=== PATIENT | male | born 1970 | race Two or more races ===

== ENCOUNTER 2023-07-24 18:33 | Inpatient (IN) | payer SELFPAY ==
[~2023-07-24] VITALS: Ht 175.3 cm; Wt 93.0 kg
[2023-07-24 18:35] VITALS: PULSE 85; RESP 10; O2SAT 86
[2023-07-24] MEDS ORDERED: NALOXONE HCL 1MG/ML 2ML SYRINGE ONE ×2 (18:41→21:52)
[2023-07-24] MEDS ORDERED: SODIUM CHLORIDE 0.9% 1,000 ML IVB ONE (18:45)
[2023-07-24] MEDS ORDERED: NALOXONE HCL 1MG/ML 2ML SYRINGE IV ONE ×4 (18:45→22:00)
[2023-07-24 18:55] LABS: Base Excess -1.1 mmol/L (-2.0-2.0)
[2023-07-24 19:30] VITALS: PULSE 87; RESP 12; O2SAT 94
[2023-07-24 19:34] LABS: Hematocrit 43.2 % (41.0-53.0); Mean Corpuscular Hemoglobin 31.2 pg (28.0-32.0); Mean Corpuscular Hgb Conc. 34.7 g/dL (32.0-36.0); Mean Corpuscular Volume 89.8 fL (80.0-100.0); Red Blood Cells 4.81 10^6/uL (4.5-5.90); Red Cell Distribution Width 12.8 % (11.8-14.3); White Blood Cell 14.2 10^3/uL (4.4-10.8)
[2023-07-24 19:37] LABS: Urine Bacteria NONE SEEN /hpf (None Seen); Urine Blood Negative /uL (Negative); Urine Clarity Clear (Clear); Urine Protein, UAD 1+ (Negative); Urine Specific Gravity 1.021 (1.001-1.035); Urine Urobilinogen Normal (Negative); Urine WBC 2 /hpf (0 - 3); Urine pH 5.5 (5.0-8.0)
[2023-07-24 19:40] LABS: Urine Color STRAW (Yellow)
[2023-07-24 19:42] LABS: Basophils % (manual) 0 (0.0-2.0); Blast Cells 0; Promyelocytes % 0; Reactive Lymphocytes 0
[2023-07-24 19:54] LABS: Alanine Aminotransferase 67 U/L (7-40); Albumin 4.7 g/dL (3.2-4.8); Alkaline Phosphatase 83 U/L (46-116); Anion Gap 13 (5-15); Aspartate Aminotransferase 66 U/L (13-40); BUN/Creatinine Ratio 6.4 (10.0-20.0); Bilirubin, Total 0.4 mg/dL (0.2-1.0); Blood Alcohol 3.2 mg/dL (<10); Blood Urea Nitrogen 7 mg/dL (9-23); Calcium 9.6 mg/dL (8.5-10.1); Carbon Dioxide 22 mmol/L (20-30); Chloride 103 mmol/L (98-107); Glucose 293 mg/dL (74-106); Potassium 3.5 mmol/L (3.5-5.1); Sodium 138 mmol/L (136-145); Total Protein 7.3 g/dL (5.7-8.2)
[2023-07-24 20:00] LABS: Band Neutrophils % (manual) 6; Eosinophils % (manual) 2 (0-7); Lymphocytes % (manual) 35 (10.0-50.0); Metamyelocytes % 6; Monocytes % (manual) 13 (0-12); Myelocytes % 4; Platelet Estimate Adequate
[2023-07-24 20:22] LABS: Amphetamine Screen, Urine Neg (NEGATIVE); Barbiturate Scree,Urine Neg (NEGATIVE); Benzodiazephine Screen, Urine Neg (NEGATIVE); Cannabinoid Screen, Urine Neg (NEGATIVE); Cocaine Screen, Urine Neg (NEGATIVE); Opiate Scree,Urine Neg (NEGATIVE); Phencyclidine Screen, Urine Neg (NEGATIVE)
[2023-07-24] MEDS ORDERED: FUROSEMIDE 40 MG/4 ML VIAL IV ONE (20:45)
[2023-07-24] MEDS ORDERED: ONDANSETRON HCL 4 MG/2 ML VIAL IV PRN (21:00)
[2023-07-24] MEDS ORDERED: NITROGLYCERIN 0.4 MG SL TAB SL PRN (21:00)
[2023-07-24] MEDS ORDERED: IOHEXOL 350 MG/ML 100ML IJ ONE (22:29)
[2023-07-24 22:58] LABS: COVID19 ANTIGEN SOFIA FIA NEGATIVE (NEGATIVE)
[2023-07-25] VITALS (92 sets, daily range): BP systolic 84–131; BP diastolic 45–92; PULSE 67–111; RESP 10–21; TEMP 97.6–100.9; O2SAT 93–100
[2023-07-25] MEDS ORDERED: NALOXONE HCL 2 MG in DEXTROSE 495 ML IV ONE (01:15)
[2023-07-25] MEDS ORDERED: SUCCINYLCHOLINE CHLORIDE 20 MG/ML 10ML VIAL IV ONE ×2 (02:11→02:45)
[2023-07-25] MEDS ORDERED: ETOMIDATE (2MG/ML) 20ML VIAL IV ONE ×2 (02:11→02:45)
[2023-07-25] MEDS ORDERED: MIDAZOLAM DRIP 50 mg/50mL 50 ML IV ONE (02:12)
[2023-07-25] MEDS ORDERED: MIDAZOLAM DRIP 50 mg/50mL 50 ML IV SCH (02:15)
[2023-07-25] MEDS: MIDAZOLAM DRIP 50 mg/50mL 50 ML IV SCH ×3 (02:45→23:57)
[2023-07-25 03:35] LABS: Base Excess 0.1 mmol/L (-2.0-2.0)
[2023-07-25 06:22] LABS: Anion Gap 10 (5-15); Carbon Dioxide 24 mmol/L (20-30); Chloride 102 mmol/L (98-107); Sodium 136 mmol/L (136-145)
[2023-07-25 06:23] LABS: Calcium 9.2 mg/dL (8.5-10.1)
[2023-07-25 06:28] LABS: Glucose 212 mg/dL (74-106)
[2023-07-25 06:29] LABS: BUN/Creatinine Ratio 5.5 (10.0-20.0); Blood Urea Nitrogen 8 mg/dL (9-23)
[2023-07-25 06:33] LABS: Basophils # (auto) 0 10 ^3/uL (0-0.2); Basophils % (auto) 0.2 % (0.0-2.0); Eosinophils # (auto) 0 10 ^3/uL (0-0.8); Hematocrit 42.3 % (41.0-53.0); Hemoglobin 14.5 g/dL (13.5-17.5); Lymphocytes # (auto) 1.5 10 ^3/uL (0.4-5.4); Lymphocytes % (auto) 7.2 % (10.0-50.0); Mean Corpuscular Hemoglobin 31.1 pg (28.0-32.0); Mean Corpuscular Hgb Conc. 34.4 g/dL (32.0-36.0); Mean Corpuscular Volume 90.3 fL (80.0-100.0); Monocytes % (auto) 4.8 % (0.0-12.0); Neutrophils # (auto) 18.1 10 ^3/uL (1.6-8.6); Neutrophils % (auto) 87.8 % (37.0-80.0); Nucleated Red Blood Cells % 0.1 %; Red Blood Cells 4.68 10^6/uL (4.5-5.90); White Blood Cell 20.7 10^3/uL (4.4-10.8)
[2023-07-25 06:38] LABS: Potassium 5.9 mmol/L (3.5-5.1)
[2023-07-25 07:08] LABS: Base Excess 0.5 mmol/L (-2.0-2.0)
[2023-07-25] MEDS: PHENYLEPHRINE IV 250 ML IV SCH ×3 (08:00→21:55)
[2023-07-25] MEDS: SODIUM CHLORIDE 0.9% 1,000 ML IV SCH (13:03)
[2023-07-25 14:45] LABS: Basophils # (auto) 0 10 ^3/uL (0-0.2); Basophils % (auto) 0.1 % (0.0-2.0); Eosinophils # (auto) 0.2 10 ^3/uL (0-0.8); Eosinophils % (auto) 1.5 % (0.0-7.0); Hematocrit 42.4 % (41.0-53.0); Hemoglobin 14.1 g/dL (13.5-17.5); Lymphocytes # (auto) 2.7 10 ^3/uL (0.4-5.4); Lymphocytes % (auto) 17.5 % (10.0-50.0); Mean Corpuscular Hemoglobin 30.7 pg (28.0-32.0); Mean Corpuscular Hgb Conc. 33.4 g/dL (32.0-36.0); Monocytes # (auto) 1.2 10 ^3/uL (0-1.3); Monocytes % (auto) 7.5 % (0.0-12.0); Neutrophils # (auto) 11.2 10 ^3/uL (1.6-8.6); Neutrophils % (auto) 73.4 % (37.0-80.0); Red Cell Distribution Width 13.2 % (11.8-14.3); White Blood Cell 15.3 10^3/uL (4.4-10.8)
[2023-07-25] MEDS ORDERED: MEROPENEM 500MG IVPB 50 ML IV ONE (14:45)
[2023-07-25] MEDS ORDERED: IOHEXOL 350 MG/ML 100ML IJ ONE (14:48)
[2023-07-25 14:53] LABS: Chloride 104 mmol/L (98-107); Potassium 4.3 mmol/L (3.5-5.1); Sodium 139 mmol/L (136-145)
[2023-07-25 14:54] LABS: Anion Gap 7 (5-15); Carbon Dioxide 28 mmol/L (20-30)
[2023-07-25 14:55] LABS: Calcium 9.2 mg/dL (8.5-10.1)
[2023-07-25 14:59] LABS: BUN/Creatinine Ratio 8.4 (10.0-20.0); Blood Urea Nitrogen 12 mg/dL (9-23); Glucose 164 mg/dL (74-106)
[2023-07-25] MEDS ORDERED: ENOXAPARIN SOD 40 MG/0.4 ML SYRINGE SC ONE (15:15)
[2023-07-25 16:16] LABS: Urine Bacteria NONE SEEN /hpf (None Seen); Urine Blood 3+ /uL (Negative); Urine Budding Yeast MANY /hpf (None Seen); Urine Clarity CLOUDY (Clear); Urine Color Yellow (Yellow); Urine Mucus FEW (None Seen); Urine Protein, UAD 1+ (Negative); Urine Specific Gravity 1.029 (1.001-1.035); Urine Urobilinogen Normal (Negative); Urine WBC 82 /hpf (0 - 3); Urine WBC Clumps PRESENT /hpf (None Seen); Urine pH 5.5 (5.0-8.0)
[2023-07-25] MEDS: ACETAMINOPHEN 650 MG RECT SUPP PR PRN ×2 (17:42→23:40)
[2023-07-25 18:09] LABS: Protein, Urine 40.1 mg/dL (0.0-11.9)
[2023-07-25 18:20] LABS: Creatinine, Urine 312.53 mg/dL (30.0-125.0); Urine Protein/Creatinine Ratio 0.13
[2023-07-25] MEDS: MEROPENEM 1GM IVPB 100 ML IV SCH ×2 (18:28→22:18)
[2023-07-25] MEDS ORDERED: PIPERACILLIN-TAZOB 3.375GM 100 ML IV SCH (22:00)
[2023-07-26] VITALS (106 sets, daily range): BP systolic 96–182; BP diastolic 46–90; PULSE 69–122; RESP 12–23; TEMP 96.3–102.6; O2SAT 93–100
[2023-07-26] MEDS: SODIUM CHLORIDE 0.9% 1,000 ML IV SCH ×2 (00:05→12:28)
[2023-07-26 03:59] LABS: Basophils # (auto) 0 10 ^3/uL (0-0.2); Basophils % (auto) 0.2 % (0.0-2.0); Eosinophils # (auto) 0.3 10 ^3/uL (0-0.8); Eosinophils % (auto) 3.1 % (0.0-7.0); Hematocrit 45.5 % (41.0-53.0); Hemoglobin 15.5 g/dL (13.5-17.5); Lymphocytes % (auto) 19.8 % (10.0-50.0); Mean Corpuscular Hemoglobin 31.8 pg (28.0-32.0); Mean Corpuscular Volume 93.6 fL (80.0-100.0); Monocytes # (auto) 0.9 10 ^3/uL (0-1.3); Monocytes % (auto) 8.5 % (0.0-12.0); Neutrophils # (auto) 7.1 10 ^3/uL (1.6-8.6); Neutrophils % (auto) 68.4 % (37.0-80.0); Nucleated Red Blood Cells % 0.1 %; Red Blood Cells 4.86 10^6/uL (4.5-5.90); Red Cell Distribution Width 12.9 % (11.8-14.3); White Blood Cell 10.4 10^3/uL (4.4-10.8)
[2023-07-26 04:13] LABS: Anion Gap 8 (5-15); Carbon Dioxide 27 mmol/L (20-30); Chloride 103 mmol/L (98-107); Potassium 3.9 mmol/L (3.5-5.1); Sodium 138 mmol/L (136-145)
[2023-07-26 04:14] LABS: Calcium 8.9 mg/dL (8.7-10.4)
[2023-07-26 04:19] LABS: BUN/Creatinine Ratio 13.2 (10.0-20.0); Blood Urea Nitrogen 14 mg/dL (9-23); Glucose 207 mg/dL (74-106)
[2023-07-26] MEDS: MEROPENEM 1GM IVPB 100 ML IV SCH ×3 (06:00→21:40)
[2023-07-26] MEDS: PHENYLEPHRINE IV 250 ML IV SCH ×3 (06:15→21:40)
[2023-07-26 09:01] LABS: Base Excess 1.5 mmol/L (-2.0-2.0)
[2023-07-26] MEDS: ENOXAPARIN SOD 40 MG/0.4 ML SYRINGE SC SCH (09:52)
[2023-07-26] MEDS: PANTOPRAZOLE 40 MG/10 ML VIAL INJ IV SCH (09:52)
[2023-07-26] MEDS: ACETAMINOPHEN 650 mg PER 20.3 mL UD GT PRN ×2 (11:59→18:52)
[2023-07-26] MEDS: MIDAZOLAM DRIP 50 mg/50mL 50 ML IV SCH ×3 (12:25→22:21)
[2023-07-27] VITALS (106 sets, daily range): BP systolic 89–179; BP diastolic 40–86; PULSE 54–106; RESP 12–26; TEMP 97–99.5; O2SAT 94–100
[2023-07-27 04:11] LABS: Basophils # (auto) 0 10 ^3/uL (0-0.2); Basophils % (auto) 0.3 % (0.0-2.0); Eosinophils # (auto) 0.3 10 ^3/uL (0-0.8); Eosinophils % (auto) 3.1 % (0.0-7.0); Hematocrit 42.3 % (41.0-53.0); Hemoglobin 14.1 g/dL (13.5-17.5); Lymphocytes # (auto) 1.9 10 ^3/uL (0.4-5.4); Lymphocytes % (auto) 17.4 % (10.0-50.0); Mean Corpuscular Hemoglobin 31.3 pg (28.0-32.0); Mean Corpuscular Hgb Conc. 33.3 g/dL (32.0-36.0); Mean Corpuscular Volume 94.1 fL (80.0-100.0); Monocytes % (auto) 9.2 % (0.0-12.0); Neutrophils # (auto) 7.5 10 ^3/uL (1.6-8.6); Nucleated Red Blood Cells % 0.1 %; Red Blood Cells 4.49 10^6/uL (4.5-5.90); Red Cell Distribution Width 12.8 % (11.8-14.3); White Blood Cell 10.8 10^3/uL (4.4-10.8)
[2023-07-27 04:32] LABS: Alanine Aminotransferase 32 U/L (7-40); Alkaline Phosphatase 61 U/L (46-116); Anion Gap 8 (5-15); Aspartate Aminotransferase 30 U/L (13-40); BUN/Creatinine Ratio 11.5 (10.0-20.0); Blood Urea Nitrogen 9 mg/dL (9-23); Calcium 8.5 mg/dL (8.7-10.4); Carbon Dioxide 22 mmol/L (20-30); Chloride 105 mmol/L (98-107); Glucose 162 mg/dL (74-106); Potassium 4.3 mmol/L (3.5-5.1); Sodium 135 mmol/L (136-145)
[2023-07-27 04:33] LABS: Bilirubin, Total 1.1 mg/dL (0.2-1.0); Total Protein 6.6 g/dL (5.7-8.2)
[2023-07-27] MEDS: MEROPENEM 1GM IVPB 100 ML IV SCH ×3 (05:37→21:26)
[2023-07-27] MEDS: SODIUM CHLORIDE 0.9% 1,000 ML IV SCH (05:37)
[2023-07-27 07:18] LABS: Base Excess 2.6 mmol/L (-2.0-2.0)
[2023-07-27] MEDS ORDERED: chlordiazePOXIDE HCL 25 MG CAP PO PRN (08:45)
[2023-07-27] MEDS: PANTOPRAZOLE 40 MG/10 ML VIAL INJ IV SCH (10:39)
[2023-07-27] MEDS: ENOXAPARIN SOD 40 MG/0.4 ML SYRINGE SC SCH (10:40)
[2023-07-27] MEDS: MIDAZOLAM DRIP 50 mg/50mL 50 ML IV SCH (12:48)
[2023-07-27] MEDS: chlordiazePOXIDE HCL 25 MG CAP PO SCH ×3 (13:12→23:48)
[2023-07-27] MEDS: PHENYLEPHRINE IV 250 ML IV SCH (23:49)
[2023-07-28] VITALS (84 sets, daily range): BP systolic 11–148; BP diastolic 46–102; PULSE 56–95; RESP 12–31; TEMP 97–100.4; O2SAT 90–100
[2023-07-28] MEDS: MIDAZOLAM DRIP 50 mg/50mL 50 ML IV SCH (00:54)
[2023-07-28 04:16] LABS: Basophils # (auto) 0 10 ^3/uL (0-0.2); Basophils % (auto) 0.3 % (0.0-2.0); Eosinophils # (auto) 0.4 10 ^3/uL (0-0.8); Eosinophils % (auto) 4.9 % (0.0-7.0); Lymphocytes # (auto) 1.2 10 ^3/uL (0.4-5.4); Lymphocytes % (auto) 15.1 % (10.0-50.0); Mean Corpuscular Hgb Conc. 35.3 g/dL (32.0-36.0); Mean Corpuscular Volume 90.5 fL (80.0-100.0); Monocytes # (auto) 0.6 10 ^3/uL (0-1.3); Monocytes % (auto) 7.2 % (0.0-12.0); Neutrophils # (auto) 5.7 10 ^3/uL (1.6-8.6); Neutrophils % (auto) 72.5 % (37.0-80.0); Red Blood Cells 4.08 10^6/uL (4.5-5.90); Red Cell Distribution Width 12.6 % (11.8-14.3); White Blood Cell 7.9 10^3/uL (4.4-10.8)
[2023-07-28 04:18] LABS: Chloride 104 mmol/L (98-107); Potassium 3.7 mmol/L (3.5-5.1); Sodium 138 mmol/L (136-145)
[2023-07-28 04:19] LABS: Anion Gap 6 (5-15); Calcium 8.8 mg/dL (8.5-10.1); Carbon Dioxide 28 mmol/L (20-30)
[2023-07-28 04:24] LABS: Blood Urea Nitrogen 17 mg/dL (9-23); Glucose 161 mg/dL (74-106)
[2023-07-28] MEDS: chlordiazePOXIDE HCL 25 MG CAP PO SCH ×3 (06:01→18:06)
[2023-07-28] MEDS: MEROPENEM 1GM IVPB 100 ML IV SCH ×3 (06:02→21:58)
[2023-07-28 06:48] LABS: Base Excess 1.9 mmol/L (-2.0-2.0)
[2023-07-28] MEDS: PHENYLEPHRINE IV 250 ML IV SCH ×2 (08:15→16:35)
[2023-07-28] MEDS: PANTOPRAZOLE 40 MG/10 ML VIAL INJ IV SCH (10:07)
[2023-07-28] MEDS: ENOXAPARIN SOD 40 MG/0.4 ML SYRINGE SC SCH (10:08)
[2023-07-28 11:08] LABS: Base Excess 2.9 mmol/L (-2.0-2.0)
[2023-07-28] MEDS ORDERED: MORPHINE SULFATE INJ 2 MG/ml SYRG IV ONE (11:30)
[2023-07-28] MEDS: MORPHINE SULFATE INJ 2 MG/ml SYRG IV PRN ×2 (11:37→15:58)
[2023-07-28] MEDS ORDERED: LACTULOSE 20Gm/30ML SOLN PO ONE (19:00)
[2023-07-28] MEDS ORDERED: GLYCERIN ADULT RECTAL SUPP PR ONE (19:00)
[2023-07-29] VITALS (22 sets, daily range): BP systolic 115–146; BP diastolic 65–92; PULSE 68–91; RESP 12–21; TEMP 98.4–99.9; O2SAT 93–99
[2023-07-29] MEDS: chlordiazePOXIDE HCL 25 MG CAP PO SCH ×5 (00:30→19:34)
[2023-07-29] MEDS: MORPHINE SULFATE INJ 2 MG/ml SYRG IV PRN ×3 (00:36→19:54)
[2023-07-29] MEDS: PHENYLEPHRINE IV 250 ML IV SCH ×3 (00:55→17:35)
[2023-07-29] MEDS: MIDAZOLAM DRIP 50 mg/50mL 50 ML IV SCH (02:45)
[2023-07-29] MEDS: MEROPENEM 1GM IVPB 100 ML IV SCH ×3 (06:12→23:18)
[2023-07-29] MEDS: PANTOPRAZOLE 40 MG/10 ML VIAL INJ IV SCH (10:38)
[2023-07-29] MEDS: ENOXAPARIN SOD 40 MG/0.4 ML SYRINGE SC SCH (10:38)
[2023-07-29] MEDS: HYDROcodone-ACET 5/325MG TAB PO PRN (15:57)
[2023-07-29] MEDS ORDERED: LACTULOSE 20Gm/30ML SOLN PO ONE (16:00)
[2023-07-30] VITALS: RESP 19; O2SAT 94
[2023-07-30] MEDS: chlordiazePOXIDE HCL 25 MG CAP PO SCH ×3 (01:07→12:30)
[2023-07-30] MEDS: PHENYLEPHRINE IV 250 ML IV SCH ×2 (01:55→10:09)
[2023-07-30 02:00] VITALS: RESP 19; O2SAT 95
[2023-07-30] MEDS: MEROPENEM 1GM IVPB 100 ML IV SCH (06:15)
[2023-07-30] MEDS: MORPHINE SULFATE INJ 2 MG/ml SYRG IV PRN (06:25)
[2023-07-30 09:00] VITALS: BP 132/86; PULSE 72; RESP 21; TEMP 98.1; O2SAT 95
[2023-07-30] MEDS: HYDROcodone-ACET 5/325MG TAB PO PRN ×2 (10:09)
[2023-07-30] MEDS: ENOXAPARIN SOD 40 MG/0.4 ML SYRINGE SC SCH (10:09)
[2023-07-30] MEDS: PANTOPRAZOLE 40 MG/10 ML VIAL INJ IV SCH (10:09)
[2023-07-30 16:17] VITALS: BP 117/70; TEMP 36.7
[2023-07-31] MEDS ORDERED: PANTOPRAZOLE 40 MG TAB PO SCH (10:00)
== END 2023-07-30 17:00 | disposition home or self-care (01) | DRG 871 ==
LOC: EDBD 18:33 → ER 18:33 → TELE 21:08 → ICU WEST 07-25 04:06 → CENTRAL 07-29 21:02
PROVIDERS: ADMIT Internal Medicine; ATTEND Internal Medicine
PROC: 5A1945Z Respiratory Ventilation, 24-96 Consecutive Hours (ICD-10-PCS; principal; 2023-07-25)
PROC: 0BH17EZ Insertion of Endotracheal Airway into Trachea, Via Natural or Artificial Opening (ICD-10-PCS; 2023-07-25)
DX: A41.9 Sepsis, unspecified organism (principal); G92.8 Other toxic encephalopathy; I21.A1 Myocardial infarction type 2; I46.9 Cardiac arrest, cause unspecified; J69.0 Pneumonitis due to inhalation of food and vomit; J96.01 Acute respiratory failure with hypoxia; N17.0 Acute kidney failure with tubular necrosis; J98.11 Atelectasis; E66.9 Obesity, unspecified; T40.2X5A Adverse effect of other opioids, initial encounter; T40.411A Poisoning by fentanyl or fentanyl analogs, accidental (unintentional), initial encounter; R74.01 Elevation of levels of liver transaminase levels; G89.29 Other chronic pain; Z20.822 Contact with and (suspected) exposure to COVID-19; Z68.30 Body mass index [BMI] 30.0-30.9, adult; Y92.89 Other specified places as the place of occurrence of the external cause
CPT/HCPCS: 36415; 36600; 70450; 71045; 71275; 80048; 80053; 80307; 80320; 81001; 82570; 82805; 82962; 83036; 83880; 83935; 84132; 84156; 84300; 84484; 85007; 85025; 85027; 85379; 87040; 87070; 87081; 87086; 87205; 87426; 93005; 93306; 94002; 94003; 94640; 96361; 96365; 96375; 96376; 97110; 97116; 97530; 99291; C9113; G0378; J0330; J2185; J2250; J2405; J7060